=== PATIENT | female | born 1965 | race Asian ===

== ENCOUNTER 2018-10-09 11:07 | Day surgery (SDC) | payer OTHER ==
[2018-10-09] MEDS ORDERED: LACTATED RINGERS 1,000 ML IV ONE (12:06)
[2018-10-09] MEDS ORDERED: fentaNYL 250 MCG/5 ML VIAL IVP ONE (13:30)
[2018-10-09] MEDS ORDERED: MIDAZOLAM 2 MG/2 ML VIAL IVP ONE (13:30)
[2018-10-09] MEDS ORDERED: SIMETHICONE 40 MG/0.6 ML 30 ML BOTTLE PO ONE (13:47)
[2018-10-09 14:15] VITALS: BP 104/61
== END 2018-10-09 11:08 | disposition home or self-care (01) ==
LOC: SDS 11:07
PROVIDERS: ATTEND Internal Medicine
PROC: 0DJD8ZZ Inspection of Lower Intestinal Tract, Via Natural or Artificial Opening Endoscopic (ICD-10-PCS; principal; 2018-10-09 13:00)
DX: Z12.11 Encounter for screening for malignant neoplasm of colon (principal); K64.8 Other hemorrhoids
CPT/HCPCS: 45378; A9270; J3010; J7120

== ENCOUNTER 2021-05-23 14:17 | Outpatient (CLI) | payer OTHER ==
--- NOTE | 2021-05-24 13:56 | Mammography Report ---
BILATERAL DIGITAL SCREENING MAMMOGRAM 3D/2D: 05/23/2021 CLINICAL: Routine screening. Comparison is made to exams dated: 07/19/2018 ultrasound, 07/16/2018 mammogram, and 01/29/[address] [facility]. There are scattered fibroglandular elements in both breasts. No significant masses, calcifications, or other findings are seen in either breast. There has been no significant interval change. IMPRESSION: NEGATIVE There is no mammographic evidence of malignancy. A 1 year screening mammogram is recommended. This exam was interpreted at Station ID: [id number]. NOTE: For mammograms, a report in lay terms will be sent to the patient. Approximately 15% of breast malignancies will not be visualized mammographically. In the management of a palpable breast mass, a negative mammogram must not discourage biopsy of a clinically suspicious lesion. Electronically Signed By: David Park M.D. aty/penrad:05/23/2021 16:49:56 ACR BI-RADS Category 1: Negative 3341F PARENCHYMAL PATTERN: (A) - The breast(s) demonstrate(s) scattered fibroglandular densities. BI-RADS CATEGORY: (1) - 1 RECOMMENDATION: (ANNUAL) - Recommend routine annual screening mammography. [id number] 1 year screening LATERALITY: (B)
== END 2021-05-23 14:18 | disposition home or self-care (01) ==
LOC: DI 14:17
DX: Z12.31 Encounter for screening mammogram for malignant neoplasm of breast (principal)